=== PATIENT | female | born 1985 | race Caucasian/White ===

== ENCOUNTER 2024-03-21 06:07 | Day surgery (SDC) | payer BC, SELFPAY ==
[2024-03-21] VITALS (10 sets, daily range): BP systolic 110–126; BP diastolic 66–84; BMI 33.7
[2024-03-21 06:56] LABS: HCG, Urine Qualitative Screen Negative
--- NOTE | 2024-03-21 08:41 | ITS.CL.CATH ---
[facility] - Catheterization
Cardiac Catheterization
Procedure Report:
CARDIAC CATHETERIZATION REPORT
Date of Procedure: 03/21/2024
Referring: Mitchel Young MD
�
HEMODYNAMIC DATA
AO: 124/78
LV: 124/18
PCWP: 21
PA: 38/22
RV: 38/15
RA: 14
Oximetry: Ao 96%, PA 80%, IVC 83%, cardiac output 8.7, cardiac index 4.2
�
LEFT VENTRICULOGRAPHY: Normal left ventricular wall motion with EF 56%
�
CORONARY ANGIOGRAPHY
Dominance: Right
Left Main: Normal
LAD: Normal
Circumflex: Normal
RCA: Normal
�
Closure Device: None-the procedure was performed via the right radial artery. The Sunday's test was normal prior to the procedure.
�
Radiation dose (mGy): 298
DAP (cm2.Gy): 23.2
Fluoroscopy time: 5.3 minutes
�
CONCLUSIONS:
1. Mildly elevated filling pressures with borderline pulmonary hypertension
2. High cardiac output state
3. Normal left ventricular function with EF 56%
4. Normal coronary arteries
�
RECOMMENDATIONS: Will increase furosemide to 40 mg twice daily, add KCl 10 mEq twice daily. Strict dietary sodium restriction (2 g/day) has been recommended. Sustained weight loss will likely improve diastolic filling pressures. I do not
recommend that she resume treatment with Qsymia due to its propensity for tachycardia and my personal concern about phenteramine use in patients with pulmonary hypertension
�
Copy to: Mitchel Young MD, SUNITA Nicholas ([place], [place])
�
Carlos A Almanzar MD, [facility], [facility]
[2024-03-21] MEDS: NSS 500 IV (09:00)
[2024-03-21] MEDS: PERCOCET 5/325 1 TABLET PO (09:25)
== END 2024-03-21 12:35 | disposition home or self-care (01) ==
LOC: CATH 06:07
PROVIDERS: ATTENDING PHYSICIAN Internal Medicine Cardiovascular Disease; FAMILY PHYSICIAN Internal Medicine Cardiovascular Disease; OTHER PHYSICIAN Nurse Practitioner Family
DX: I27.20 Pulmonary hypertension, unspecified (principal); Z79.899 Other long term (current) drug therapy
CPT/HCPCS: 81025; 93460; C1894; Q9967